=== PATIENT | male | born 1980 | race Caucasian/White ===

== ENCOUNTER 2022-04-30 11:03 | Emergency (ER) | payer OTHER | END 2022-04-30 12:22 | disposition home or self-care (01) | LOC: EEVIPCON 11:03 → BURERS 11:03 | DX: S16.1XXA Strain of muscle, fascia and tendon at neck level, initial encounter (principal); F17.210 Nicotine dependence, cigarettes, uncomplicated; Y04.2XXA Assault by strike against or bumped into by another person, initial encounter | CPT/HCPCS: 70360; 71046 ==